=== PATIENT | female | born 1995 | race Hispanic/Latino ===

== ENCOUNTER 2023-02-21 01:06 | Emergency (ER) | payer SELFPAY ==
--- OUTSIDE RECORDS SUMMARY | 2023-02-21 01:09 | XMS REPORT | Continuity of Care Document ---
:1995 Author Organization [facility] t Address [address] [place] [id number] Care Team Providers Name Role Phone Unavailable Unavailable Unavailable Problems This patient has no known problems. Allergies, Adverse Reactions, Alerts This patient has no known allergies or adverse reactions. Medications This patient has no known medications. Procedures This patient has no known procedures. Encounters Start End Encounter Admission Attending Care Care Encounter Source Date/Time Date/Time Type Type Clinicians Facility Department ID 2023-02-13 2023-02-13 [facility] [id number] 09:09:34 09:09:34 [id number] [facility] Results Test Description Test Time Test Comments Results Result Comments Source CULTURE, URINE 2023-02-15 SPECIMEN NUMBER: [id number] CULTURE, URINE SPECIMEN NUMBER: [id number] SPECIMEN COMMENT: URINE SOURCE: URINE REPORT STATUS: FINAL FINAL REPORT: 02/15/2023 50-100,000 CFU/ML UROGENITAL CHELSEY PRESENT NO COMMON PATHOGENS UNLESS OTHERWISE INDICATED, ALL TESTING PERFORMED AT [facility] [address] [place] [id number] [employer]ALL [employer]ING MACHINE TENDER: Ronal WHITEIA NUMBER [id number] [place]. [id number] TSH, THIRD GENERATION 2023-02-14 07:17:56 Test Item Value Reference Range Interpretation Comme nts TSH, THIRD GENERATION (test 1.980 UIU/ML 0.400-4.100 UNLESS OTHERWISE INDICATED, code = 2821) ALL TESTING PER FORMED AT [facility] [address] [place] [address] [phone] [employer] WALL [employer]ING MACHINE TENDER: Ronal DOE [id number] [place] [id number]
[2023-02-21 02:04] LABS: Absolute Lymphocytes (CBC) 2.7 K/uL (0.7-4.9); Hematocrit 33.8 % (36.0-45.0); Lymphocytes % 30.7 % (15.3-44.8); MCV 84.1 fL (80-100); MPV 6.9 fL (7.6-11.3); Platelets 375 thou/uL (152-406); RBC Red Blood Cell Count 4.02 M/uL (3.86-4.86)
[2023-02-21] MEDS ORDERED: NA CHLORIDE 0.9% 1,000 ML ONE (02:05)
[2023-02-21 02:10] LABS: Specific Gravity 1.016 (1.005-1.030)
[2023-02-21 02:12] LABS: Calcium Oxalate Crystals- Ur Few /HPF (None Seen); Urine Bacteria <20 /HPF (<20); Urine Crystals Unidentified Few /HPF (None Seen); Urine Mucus 4+ /HPF (None Seen); Urine WBC Clump Rare /HPF (None Seen)
[2023-02-21 02:13] LABS: Specific Gravity 1.016 (1.005-1.030); Urine Bilirubin NEGATIVE (Negative); Urine Blood Negative (Negative); Urine Clarity Slightly Cloudy (Clear); Urine Color Yellow (Yellow); Urine Glucose Negative (Negative); Urine Protein 1+ (Negative); Urine Urobilinogen Normal (Normal)
[2023-02-21 02:28] LABS: Potassium 3.5 mEq/L (3.5-5.1)
[2023-02-21] MEDS ORDERED: CEFTRIAXONE 1000 MG/VIAL ONE (02:39)
[2023-02-21] MEDS ORDERED: NA CHLORIDE 0.9% 100 ML ONE (02:39)
--- NOTE | 2023-02-21 03:14 | EDPHYS ---
Physician Documentation [facility] Name: Jenni Ac Age: 28 yrs Sex: Female : 1995 Arrival Date: 02/21/2023 Time: 01:06 Bed 17 Private MD: MITA Physician Roger Hogan HPI: 02/21 02:14 This 28 yrs old Female presents to ER via Ambulatory with complaints of brianne Abdominal Pain, Possible Kidney Stone, 12 weeks preg. 02:14 The patient presents with abdominal pain in the upper abdomen, in the lower abdomen. brianne Onset: The symptoms/episode began/occurred just prior to arrival. The patient complains of pain in the right mid back and right low back. The pain radiates to the right mid back and right low back. Modifying factors: The symptoms are alleviated by nothing. the symptoms are aggravated by nothing. The symptoms are located in the right mid back and right low back. The symptoms radiate to the right flank. Historical: - Allergies: 01:24 Zofran; rv - PMHx: 01:24 Kidney stone; rv 01:25 Hyperthyroidism; rv - PSHx: 01:24 None; rv - Immunization history:: Adult Immunizations up to date. - Social history:: Smoking status: Patient denies any tobacco usage or history of. - Family history:: not pertinent. ROS: 02:14 Constitutional: Negative for fever, chills, and weight loss, Eyes: Negative for injury, brianne pain, redness, and discharge, ENT: Negative for injury, pain, and discharge, Neck: Negative for injury, pain, and swelling, Cardiovascular: Negative for chest pain, palpitations, and edema, Respiratory: Negative for shortness of breath, cough, wheezing, and pleuritic chest pain, Abdomen/GI: Negative for abdominal pain, nausea, vomiting, diarrhea, and constipation, : Negative for injury, bleeding, discharge, and swelling, MS/Extremity: Negative for injury and deformity, Skin: Negative for injury, rash, and discoloration, Neuro: Negative for headache, weakness, numbness, tingling, and seizure, Psych: Negative for depression, anxiety, suicide ideation, homicidal ideation, and hallucinations, Allergy/Immunology: Negative for hives, rash, and allergies, Endocrine: Negative for neck swelling, polydipsia, polyuria, polyphagia, and marked weight changes, Hematologic/Lymphatic: Negative for swollen nodes, abnormal bleeding, and unusual bruising, 02:14 Back: Positive for flank pain, on the right, Exam: 02:14 Constitutional: This is a well developed, well nourished patient who is awake, alert, brianne and in no acute distress. Head/Face: Normocephalic, atraumatic. Eyes: Pupils equal round and reactive to light, extra-ocular motions intact. Lids and lashes normal. Conjunctiva and sclera are non-icteric and not injected. Cornea within normal limits. Periorbital areas with no swelling, redness, or edema. ENT: Nares patent. No nasal discharge, no septal abnormalities noted. Tympanic membranes are normal and external auditory canals are clear. Oropharynx with no redness, swelling, or masses, exudates, or evidence of obstruction, uvula midline. Mucous membranes moist. Neck: Trachea midline, no thyromegaly or masses palpated, and no cervical lymphadenopathy. Supple, full range of motion without nuchal rigidity, or vertebral point tenderness. No Meningismus. Chest/axilla: Normal chest wall appearance and motion. Nontender with no deformity. No lesions are appreciated. Cardiovascular: Regular rate and rhythm with a normal S1 and S2. No gallops, murmurs, or rubs. Normal PMI, no JVD. No pulse deficits. Respiratory: Lungs have equal breath sounds bilaterally, clear to auscultation and percussion. No rales, rhonchi or wheezes noted. No increased work of breathing, no retractions or nasal flaring. Skin: Warm, dry with normal turgor. Normal color with no rashes, no lesions, and no evidence of cellulitis. MS/ Extremity: Pulses equal, no cyanosis. Neurovascular intact. Full, normal range of motion. Neuro: Awake and alert, GCS 15, oriented to person, place, time, and situation. Cranial nerves II-XII grossly intact. Motor strength 5/5 in all extremities. Sensory grossly intact. Cerebellar exam normal. Normal gait. 02:14 Abdomen/GI: Inspection: gravid appearance, is noted, Bowel sounds: normal, Palpation: abdomen is soft and non-tender, Liver: no appreciated palpable abnormalities, Hernia: not appreciated, Vital Signs: 01:22 BP 144 / 86; Pulse 78; Resp 17; Temp 98; Pulse Ox 100% on R/A; Weight 69 kg; Height 4 rv ft. 11 in. ; 03:00 BP 140 / 80; Pulse 76; Resp 17; Pulse Ox 100% ; vc1 01:22 Body Mass Index 30.72 (69.00 kg, 149.86 cm) rv MDM: 01:17 Patient medically screened. [facility] 02:18 Differential diagnosis: nephrolithiasis, pyelonephritis, Cholelithiasis chronic back brianne pain, Pyelonephritis Renal Infarction ruptured disc, appendicitis, Cholelithiasis, non-specific abd pain. Data reviewed: vital signs, nurses notes, lab test result(s), radiologic studies, ultrasound. Consideration of Admission/Observation Escalation of care including admission/observation considered. I considered the following discharge prescriptions or medication management in the emergency department Medications were administered in the Emergency Department. See MAR. Independent interpretation of the following test(s) in the Emergency Department Radiology Department Ultrasound: My interpretation is RENAL USG. Test considered but Not performed: CT: NO CT , GRAVID 12 WEEKS. Care significantly affected by the following chronic conditions: KIDNEY STONES, HYPERTHYROID. Counseling: I had a detailed discussion with the patient and/or guardian regarding the historical points, exam findings, and any diagnostic results supporting the discharge/admit diagnosis, lab results, radiology results, the need for outpatient follow up, for definitive care, an OB/Gyne specialist, a urologist. 02/21 01:19 Order name: Basic Metabolic Panel; Complete Time: 02:51 [facility] 02/21 01:19 Order name: CBC with Diff; Complete Time: 02:11 [facility] 02/21 01:19 Order name: Test, Urine; Complete Time: 02:11 [facility] 02/21 01:19 Order name: Quantitative Hcg; Complete Time: 02:51 [facility] 02/21 01:19 Order name: Urinalysis w/ reflexes; Complete Time: 02:29 [facility] 02/21 02:16 Order name: Urine Culture [facility] 02/21 02:32 Order name: Renal Ultrasound-Complete [facility] 02/21 02:32 Order name: OB Limited [facility] 02/21 01:19 Order name: IV Saline Lock; Complete Time: 01:22 [facility] 02/21 01:19 Order name: Labs collected and sent; Complete Time: 01:22 [facility] 02/21 01:19 Order name: NPO; Complete Time: 01:22 brianne Administered Medications: 01:56 Drug: NS 0.9% IV 1000 ml IV at 1 bolus Per protocol; 1000 mL bolus Route: IV; Rate: 1 rv bolus; Site: right forearm; 02:28 Drug: Rocephin IV 1 grams IV at per protocol once; Given slow IV push per pharmacy rv instructions Route: IV; Rate: per protocol; Site: right forearm; 03:30 Not Given (Physician Discretion): ns 0.9% (20 ml/kg) 20 ml/kg IV at 1 bolus once vc1 Disposition Summary: 02/21/23 03:13 Discharge Ordered Notes: Location: Home brianne Problem: new brianne Symptoms: have improved brianne Condition: Stable brianne Diagnosis - 12 weeks gestation of brianne - Hydronephrosis with renal and ureteral calculous obstruction brianne - UTI/ Urinary tract infection, site not specified brianne Followup: brianne - With: Private Physician - When: 2 - 3 days - Reason: Recheck today's complaints, Continuance of care, Re-evaluation by your physician Followup: brianne - With: Ced Alonzo MD - When: 2 - 3 days - Reason: Recheck today's complaints, Re-evaluation by your physician Discharge Instructions: - Discharge Summary Sheet brianne - Abdominal Pain During brianne - Kidney Stones brianne - Care brianne - Urinary Tract Infection, Adult brianne - Kidney Stones, [id number] brianne - Urinary Tract Infection, Adult, [id number] brianne - Hydronephrosis brianne - Dietary Guidelines to Help Prevent Kidney Stones brianne Forms: - Medication Reconciliation Form [facility] - Thank You Letter brianne - Antibiotic Education brianne - Prescription Opioid Use brianne - Patient Portal Instructions [facility] - Leadership Thank You Letter [facility] Prescriptions: - acetaminophen-codeine 300-30 mg Oral tablet - take 2 tablet ORAL route every 6 hours as needed for pain; 20 tablet; Refills: brianne 0, Product Selection Permitted - cefdinir 300 mg Oral capsule - take 1 capsule ORAL route every 12 hours; 14 capsule; Refills: 0, Product [facility] Selection Permitted - promethazine 25 mg Oral Tablet - take 1 tablet ORAL route every 6 hours As needed; 20 tablet; Refills: 0, brianne Product Selection Permitted Signatures: Dispatcher [employer] Roger Saleh MD MD cha Vicente, Ronaldo, RN RN rv Charleen Starr RN vc1 Corrections: (The following items were deleted from the chart) 01:24 01:24 Allergies: No Known Allergies; rv rv 02:32 01:34 OB Limited ordered. EDMS EDMS 02:32 01:34 Renal Ultrasound-Complete ordered. EDMS EDMS 02:34 01:47 Rp Exam Complete+US.RAD.BRZ ordered. EDMS EDMS 02:34 01:47 OB Limited+US.RAD.BRZ ordered. EDMS EDMS
--- NOTE | 2023-02-21 03:14 | ER ---
Nurse's Notes [facility] Name: Jenni Ac Age: 28 yrs Sex: Female : 1995 Arrival Date: 02/21/2023 Time: 01:06 Bed 17 Private MD: Diagnosis: 12 weeks gestation of ;Hydronephrosis with renal and ureteral calculous obstruction;UTI/ Urinary tract infection, site not specified Presentation: 02/21 01:22 Chief complaint: Patient states: right flank pain r/t abd RUQ, with nausea and rv vomiting. denies fever. 12 weeks . Coronavirus screen: At this time, the client does not indicate any symptoms associated with coronavirus-19. Ebola Screen: No symptoms or risks identified at this time. Initial Sepsis Screen: Does the patient meet any 2 criteria? No. Patient's initial sepsis screen is negative. Does the patient have a suspected source of infection? No. Patient's initial sepsis screen is negative. Risk Assessment: Do you want to hurt yourself or someone else? Patient reports no desire to harm self or others. Onset of symptoms was February 21, 2023. 01: Method Of Arrival: Ambulatory rv : Acuity: JB 3 rv Triage Assessment: :25 General: Appears uncomfortable, Behavior is calm, cooperative. Pain: Complains of pain rv in back Pain radiates to abdomen. Neuro: Level of Consciousness is awake, alert, obeys commands, Oriented to person, place, time, situation. Cardiovascular: Capillary refill Patient's skin is warm and dry. Respiratory: Airway is patent Respiratory effort is even, unlabored. GI: Abdomen is round non-distended, Reports upper abdominal pain, nausea, vomiting. : No signs and/or symptoms were reported regarding the genitourinary system. Derm: Skin is intact. Historical: - Allergies: 01:24 Zofran; rv - PMHx: :24 Kidney stone; rv :25 Hyperthyroidism; rv - PSHx: :24 None; rv - Immunization history:: Adult Immunizations up to date. - Social history:: Smoking status: Patient denies any tobacco usage or history of. - Family history:: not pertinent. Screenin: [facility] ED Fall Risk Assessment (Adult) History of falling in the last 3 months, rv including since admission No falls in past 3 months (0 pts) Score/Fall Risk Level 0 - 2 = Low Risk Oriented to surroundings, Maintained a safe environment, Educated pt \T\ family on fall prevention, incl call for assistance when getting out of bed, Assessed \T\ reinforced patient's understanding of fall precautions, Provided non-skid footwear, Hourly rounding (assess needs \T\ fall precautionary measures) done, Used ambulatory aids as needed (educated on \T\ assisted with), Used gait belt as appropriate. Abuse screen: Denies threats or abuse. Denies injuries from another. Nutritional screening: No deficits noted. Tuberculosis screening: No symptoms or risk factors identified. Assessment: :27 Reassessment: see triage notes. rv 01:27 GI: Bowel sounds present X 4 quads. Abd is soft and non tender X 4 quads. rv 03:30 Reassessment: No changes from previously documented assessment. Patient and/or family vc1 updated on plan of care and expected duration. Pain level reassessed. Patient is alert, oriented x 3, equal unlabored respirations, skin warm/dry/pink. Vital Signs: 01:22 BP 144 / 86; Pulse 78; Resp 17; Temp 98; Pulse Ox 100% on R/A; Weight 69 kg; Height 4 rv ft. 11 in. ; 03:00 BP 140 / 80; Pulse 76; Resp 17; Pulse Ox 100% ; vc1 01:22 Body Mass Index 30.72 (69.00 kg, 149.86 cm) rv ED Course: 01:09 Patient arrived in ED. gm2 01:17 Roger Hogan MD is Attending Physician. brianne 01:22 Michele Feldman RN is Primary Nurse. rv 01:24 Triage completed. rv 01:25 Arm band placed on right wrist. rv 01:26 Placed in gown. Provided Education on: kidney stone. Client placed on continuous rv cardiac and pulse oximetry monitoring. NIBP monitoring applied. tugboat captain on. :27 No provider procedures requiring assistance completed. rv 01:45 Inserted saline lock: 20 gauge in right forearm, using aseptic technique. rv 01:45 Inserted saline lock: 22 gauge in left antecubital area, using aseptic technique. Blood rv collected. 02:32 Renal Ultrasound-Complete In Process Unspecified. EDMS 02:32 OB Limited In Process Unspecified. EDMS 03:13 Ced Alonzo MD is Referral Physician. [facility] 03:31 IV discontinued, intact, bleeding controlled, No redness/swelling at site. Pressure vc1 dressing applied. Administered Medications: 01:56 Drug: NS 0.9% IV 1000 ml IV at 1 bolus Per protocol; 1000 mL bolus Route: IV; Rate: 1 rv bolus; Site: right forearm; 02:28 Drug: Rocephin IV 1 grams IV at per protocol once; Given slow IV push per pharmacy rv instructions Route: IV; Rate: per protocol; Site: right forearm; 03:30 Not Given (Physician Discretion): ns 0.9% (20 ml/kg) 20 ml/kg IV at 1 bolus once vc1 Medication: 01:26 VIS not applicable for this client. rv Outcome: 03:13 Discharge ordered by . [facility] 03:30 Discharged to home ambulatory, with significant other, vc1 03:30 Condition: good 03:30 Discharge instructions given to patient, Instructed on discharge instructions, follow up and referral plans. medication usage, Demonstrated understanding of instructions, follow-up care, medications, Prescriptions given X 3, 03:31 Patient left the ED. vc1 Signatures: Dispatcher [employer] EDND Roger Hogan MD MD cha Vicente, Ronaldo RN RN Charleen Farnsworth RN RN vc1 Missy Izaguirre 2 Corrections: (The following items were deleted from the chart) 01:24 01:24 Allergies: No Known Allergies; rv rv
[2023-02-21 04:23] VITALS: BP 144/86; TEMP 98; O2SAT 100
--- NOTE | 2023-02-21 18:28 | RAD REPORT ---
EXAM DESCRIPTION: US - Renal Ultrasound-Complete - 02/21/2023 2:31 am CLINICAL HISTORY: The patient is 28 years old and is Female; abd pain TECHNIQUE: Real-time limited ultrasound of the retroperitoneum with image documentation. COMPARISON: No relevant prior studies available. FINDINGS: Right kidney: 1.7 cm echogenic focus suggestive of a stone in the right renal pelvis. Mi ld to moderate right hydronephrosis. Left kidney: Unremarkable. No stones. No solid mass. No hydronephrosis. IMPRESSION: 1.7 cm echogenic focus suggestive of a stone in the right renal pelvis. Mild to moderate right hydronephrosis. Electronically signed by: Marcellus Toure MD 02/21/2023 3:09 AM CDT Due to temporary technical issues with the PACS/Fluency reporting system, reports are being signed by the in house radiologists without review as a courtesy to insure prompt reporting. The interpreting radiologist is fully responsible for the content of the report.
--- NOTE | 2023-02-21 18:31 | RAD REPORT ---
EXAM DESCRIPTION: US - OB Limited - 02/21/2023 2:31 am CLINICAL HISTORY: Abd pain TECHNIQUE: Real-time transabdominal and transvaginal obstetrical ultrasound of the maternal pelvis a nd a first trimester with image documentation. Transvaginal imaging was used for better e valuation of the fetus and adnexa. COMPARISON: No relevant prior studies available. FINDINGS: Gestation: Single intrauterine gestation. The crown-rump length measures 5.1 cm corres ponding to an estimated gestational age of 11 weeks 6 days. cardiac activity measures 156 BPM . Placenta/amniotic fluid: The placenta is posterior in location. No previa. Uterus/cervix: The uterus is anteverted and measures 11.8 x 6.3 x 9.8 cm. The cervix measures 4.7 cm in length. No myometrial mass. Ovaries: Neither ovary is visualized. No mass. Free fluid: No free fluid. IMPRESSION: 1. Single live intrauterine gestation. No focal complication. 2. Estimated gestational age by ultrasound is 11 weeks 6 days. 3. Estimated due date by ultrasound is 09/06/2023. Electronically signed by: Dwayne Lopez MD 02/21/2023 3:08 AM CDT Due to temporary technical issues with the PACS/Fluency reporting system, reports are being signed by the in house radiologists without review as a courtesy to insure prompt reporting. The interpreting radiologist is fully responsible for the content of the report.
== END 2023-02-21 03:31 | disposition home or self-care (01) ==
LOC: ER 01:06
DX: O23.01 Infections of kidney in pregnancy, first trimester (principal); N13.6 Pyonephrosis; O23.41 Unspecified infection of urinary tract in pregnancy, first trimester; N39.0 Urinary tract infection, site not specified; Z3A.12 12 weeks gestation of pregnancy
CPT/HCPCS: 36415; 76770; 76815; 80048; 81001; 81025; 84702; 85025; 87086; 87088; 96374; 99285; J0696; J7030